=== PATIENT | male | born 1980 | race Caucasian/White ===

== ENCOUNTER 2019-12-08 07:20 | Outpatient (CLI) | payer OTHER, SELFPAY ==
--- NOTE | 2019-12-08 | XR_ITS ---
WS: [id number] LEFT FINGER (THE ENTIRE LEFT HAND IS IMAGED). TECHNIQUE: PA, oblique and lateral. HISTORY: FINGER PAIN LEFT COMPARISON: None available. Which injured finger is not documented. A lateral projection of the fifth finger is submitted. Theref ore I suspect the injury is to the fifth finger. The entire hand has been imaged. Tiny avulsion fracture along the volar surface near the PIP joint of the fifth finger. Small avulsion fracture, 2 mm. Probably from the proximal phalangeal head. There is a moderate amount of soft tissu e edema adjacent to the fifth finger and metacarpal. XR/XR finger LT min 2V [id number] IMPRESSION: Small avulsion fracture near the volar PIP joint of the fifth finger.
== END 2019-12-08 07:21 | disposition home or self-care (01) ==
LOC: RADOUTREAD 13:44
PROVIDERS: Family Provider Family Medicine; Visit Provider Family Medicine
DX: S62.617A Displaced fracture of proximal phalanx of left little finger, initial encounter for closed fracture (principal); M79.645 Pain in left finger(s); X58.XXXA Exposure to other specified factors, initial encounter; Y93.67 Activity, basketball

== ENCOUNTER → 2019-12-30 12:02 | Outpatient (BNVA) | payer OTHER, SELFPAY | PROVIDERS: Family Provider Family Medicine; PCP Orthopaedic Surgery; Visit Provider Orthopaedic Surgery | DX: S62.617A Displaced fracture of proximal phalanx of left little finger, initial encounter for closed fracture (principal); X58.XXXA Exposure to other specified factors, initial encounter; Y93.67 Activity, basketball | CPT/HCPCS: 73140 ==

== ENCOUNTER → 2020-01-27 12:17 | Outpatient (BNVA) | payer OTHER, SELFPAY | PROVIDERS: Family Provider Family Medicine; PCP Orthopaedic Surgery; Visit Provider Orthopaedic Surgery | DX: S63.287A Dislocation of proximal interphalangeal joint of left little finger, initial encounter (principal); X58.XXXA Exposure to other specified factors, initial encounter | CPT/HCPCS: 73140 ==

== ENCOUNTER 2020-09-06 20:43 | Emergency (ER) | payer OTHER, SELFPAY ==
[2020-09-06 20:49] VITALS: BP 136/82; PULSE 72; RESP 18; TEMP 36.5; O2SAT 97; BMI 31.1
--- NOTE | 2020-09-06 21:03 | W.ED.BACK ---
HPI - Back Pain/Injury General: Chief Complaint: Back Pain/Injury Stated Complaint: back pain Time Seen by Provider: 09/06/20 21:02 History of Present Illness: HPI Narrative: Patient is a 40-year-old male comes to the ED with right lumbar back pain with pain radiating down right leg. Patient symptoms started Saturday. He says he was out fishing at [facility] for 3 straight days before back pain started. He went in to [facility] on Saturday and was diagnosed with sciatica and given a steroid shot and muscle relaxer and diclofenac. pain is rated rated a 6 out of 10. Patient took 1 tab of hydrocodone 10 mg that he had at home and it did not not provide any relief. Denies any bladder or bowel incontinence, loss of sensation or weakness to lower extremities or pelvic anesthesia. Patient has a scheduled appointment to see primary care doctor this . Associated symptoms: Deny abdominal pain, chills, dysuria, fatigue, fever(s), hematuria, nausea or vomiting Review of Systems Const: Denies: fever(s), chills or fatigue Eyes: Denies: change in vision or eye discomfort ENMT: Denies: throat pain, odynophagia, nasal discharge or nasal congestion Card: Denies: chest pain, palpitations, edema, swelling of feet/ankles, dyspnea on exertion or orthopnea Resp: Denies: dyspnea, productive cough or non-productive cough GI: Denies: abdominal pain, nausea, vomiting, diarrhea, constipation or hematochezia : Denies: flank pain, difficulty urinating, dysuria or hematuria Musc: Reports: back pain (Lower back pain with pain radiating down right leg.); Denies: neck pain or extremity swelling Skin/Breast: Denies: rash or new lesions Neuro: Denies: headache(s), numbness in extremities or weakness in extremities PFS ED PFSH: Medical History Closed fracture dislocation of proximal interphalangeal (PIP) joint of finger Family History Denies family history of Diabetes CAD (coronary artery disease) Clotting disorder Dementia Hyperlipidemia Psychiatric illness Chronic kidney disease (CKD) Suicide Anesthesia complication Bleeding disorder Family history of premature coronary artery disease Lung disease Cancer Hypertension Stroke Social History Smoking and tobacco status: current some day smoker Alcohol intake: current Alcohol intake frequency: holidays/special occasions only Physical Exam Const: COMMON NORMALS: patient oriented x3 HENMT: COMMON NORMALS: normocephalic HEAD & SCALP: normocephalic MOUTH: Normal oral and palatal mucosa present THROAT: posterior oropharynx normal and uvula midline Neck/C-Spine: COMMON NORMALS: supple GENERAL: Yes normal visual inspection Resp: COMMON NORMALS: normal respiratory effort, No retractions, No use of accessory muscles and clear to auscultation bilaterally AUSCULTATION: clear to auscultation bilaterally Cardio: COMMON NORMALS: regular rate, regular rhythm, S1 normal heart sound present, S2 normal heart sound present, No gallops present (Cardio), No clicks present (Cardio), No murmurs present (Cardio) and Peripheral pulses 2+ throughout RATE: regular rate RHYTHM: regular rhythm HEART SOUNDS: S1 normal heart sound present and S2 normal heart sound present PERIPHERAL PULSES: Peripheral pulses 2+ throughout GI: COMMON NORMALS: Normal to inspection, nondistended, normoactive bowel sounds present, Soft to palpation, non-tender and no masses PALPATION: Yes Soft to palpation : COMMON NORMALS: Yes no CVA tenderness BLADDER/KIDNEY EXAM: Yes no CVA tenderness Back/Pelvis: COMMON NORMALS: no CVA tenderness LUMBAR SPINE/LOWER BACK: Yes paraspinal muscle tenderness (S1 radiculopathy) and Yes straight leg raise positive right (S1 radiculopathy) Extremity: COMMON NORMALS: normal to inspection and no pedal edema NARRATIVE EXTREMITY EXAM: Neurovascular intact in both right and left lower extremities. Pedal pulse 2+ Neuro: COMMON NORMALS: patient oriented x3 and moves all extremities Skin: COMMON NORMALS: no rashes or lesions noted GENERAL SKIN EXAM: no rashes or lesions noted and dry skin Course Vital Signs: Vital signs: Vital Signs Temperature 97.7 F 09/06/20 20:49 Pulse Rate 77 09/06/20 22:50 Respiratory Rate 18 09/06/20 22:50 Blood Pressure 108/77 09/06/20 22:50 Pulse Oximetry 100 09/06/20 22:50 MDM - Back Pain/Injury MDM Narrative: Medical decision making narrative: Patient is a 40-year-old male comes to the ED with lumbar radiculopathy. Symptoms started on Saturday after patient spent 3 days over the weekend fishing. Pain is radiating down right leg. Denies any bladder or bowel incontinence, pelvic anesthesia lower extremity weakness. Lower back pain with tenderness upon palpation of the S1 and pain radiating down right leg. Patient was given IM morphine, 125 mg Solu-Medrol while here in the ED. Patient diagnosed with lumbar radiculopathy and sent home with a prescription of Medrol Dosepak. Patient has previously scheduled appointment with PCP on . Return to ED precautions given. Patient understood and agreed with plan. Discharge Plan Discharge Patient Disposition: Home Clinical Impression: Lumbar radiculopathy Condition: Stable Prescriptions: New Medrol (Frantz) 4 mg tablets,dose pack See Rx Instructions .ROUTE .COMPLEX Qty: 21 RF: 0 No Action No Known Home Medications RF: 0 Discharge Orders: Discharge Order (Routine); Ordered 09/06/20 Ordered By: Jak Cox Referrals: Vikram Garcia DO [Primary Care Provider] - Vikram Lewis MD [Family Provider] - Discharge Diet: Regular Discharge Activity: Increase activity as tolerated Patient Instructions: Lumbar Radiculopathy (ED) Activity Restrictions/Additional Instructions: Follow-up with medical provider as scheduled on . Take medications as prescribed. Stretch lower back out daily. Apply heat or cold pack to possibly help with symptoms. Return to the ER or your medical provider if condition worsens. Please read and understand discharge instructions. If any questions, please ask. Discharge Date/Time: 09/06/20 22:53 Coding Level of Care Code ED Hand Buffer for Jean Fwd Exam Comprehensive
[2020-09-06 21:53] VITALS: RESP 18
[2020-09-06] MEDS: morphine 4 mg/mL SDV 1 mL IM (21:53)
[2020-09-06 22:50] VITALS: BP 108/77; PULSE 77; RESP 18; O2SAT 100
== END 2020-09-06 22:53 | disposition home or self-care (01) ==
PROVIDERS: Emergency Provider Physician Assistant; Family Provider Family Medicine; PCP Orthopaedic Surgery
DX: M54.16 Radiculopathy, lumbar region (principal); F17.210 Nicotine dependence, cigarettes, uncomplicated
CPT/HCPCS: 12345; 96372; 99281; 99283; J2270; J2930

== ENCOUNTER 2020-09-13 14:15 | Outpatient (CLI) | payer OTHER, SELFPAY ==
--- NOTE | 2020-09-13 14:21 | MR_ITS ---
WS: [id number] MRI LUMBAR SPINE WITH CONTRAST TECHNIQUE: Sagittal T1, T2 and STIR imaging. Axial T1 and T2 imaging. Post gadolinium imaging was obt ained. CLINICAL INFORMATION: Progressive/ worsening symptoms COMPARISON: None. FINDINGS: Mild lumbar curve. No acute compression. No high-grade central canal stenosis. Degenerative endplate- type changes L5-S1 with mild disc bulging. No abnormal gadolinium enhancement. Normal cauda equina ne rve rootlets. L1-L2: Normal. L2-L3: Normal. L3-L4: No significant disc bulging. Mild facet arthropathy. Spinal canal and foramen are patent. L4-L5: Mild disc bulging with a tiny right subarticular protrusion. Slight impingement traversing rig ht L5 nerve root. Mild right and no significant left foraminal narrowing. Mild facet arthropathy. L5-S1: L5 is partially sacralized. Peripheral enhancing extruded disc material in the right foramen w ith impingement on the exiting right L5 nerve root. Moderate to severe right foraminal narrowing. Correlation for right L5 nerve root symptoms. Mild narrowing of the right subarticular recess. Left f oramen is patent. Visualized pelvic bony structures: Normal. Paravertebral soft tissues: Normal. MR/MR lumbar spine wo/w con [id number] IMPRESSION: 1. Soft tissue fills the right L5-S1 neural foramen likely due to extruded dis c material. This impinges the exiting L5 nerve root with moderate to severe rig ht foraminal narrowing. Correlation for right L5 nerve root symptoms. 2. Mild narrowing of the right L5-S1 subarticular recess with slight encroachm ent on the right S1 nerve root. 3. Tiny right subarticular protrusion L4-5 impinges the traversing right L5 ne rve root in the subarticular recess. Mild right L4-5 foraminal narrowing.
== END 2020-09-13 14:16 | disposition home or self-care (01) ==
PROVIDERS: PCP Orthopaedic Surgery; Visit Provider Orthopaedic Surgery
DX: M53.86 Other specified dorsopathies, lumbar region (principal); M54.16 Radiculopathy, lumbar region; M51.26 Other intervertebral disc displacement, lumbar region
CPT/HCPCS: 72158; A9579

== ENCOUNTER → 2020-09-16 08:28 | Outpatient (BNVA) | payer OTHER, SELFPAY | PROVIDERS: PCP Orthopaedic Surgery; Referring Provider Orthopaedic Surgery; Visit Provider Anesthesiology Pain Medicine | DX: M51.9 Unspecified thoracic, thoracolumbar and lumbosacral intervertebral disc disorder (principal); M54.9 Dorsalgia, unspecified; F17.220 Nicotine dependence, chewing tobacco, uncomplicated | CPT/HCPCS: 99204 ==

== ENCOUNTER → 2020-09-21 12:38 | Outpatient (BNVA) | payer OTHER, SELFPAY | PROVIDERS: PCP Family Medicine Adult Medicine; Visit Provider Anesthesiology Pain Medicine | DX: M54.16 Radiculopathy, lumbar region (principal); M54.9 Dorsalgia, unspecified; F17.220 Nicotine dependence, chewing tobacco, uncomplicated | CPT/HCPCS: 64483; 64484; J1040; J3490 ==

== ENCOUNTER → 2020-10-05 12:36 | Outpatient (BNVA) | payer OTHER, SELFPAY | PROVIDERS: PCP Family Medicine Adult Medicine; Visit Provider Anesthesiology Pain Medicine | DX: M54.16 Radiculopathy, lumbar region (principal); M54.9 Dorsalgia, unspecified; F17.220 Nicotine dependence, chewing tobacco, uncomplicated; Z79.891 Long term (current) use of opiate analgesic | CPT/HCPCS: 64483; 64484; J1040; J3490 ==

== ENCOUNTER → 2020-10-19 10:20 | Outpatient (BNVA) | payer OTHER, SELFPAY | PROVIDERS: PCP Family Medicine Adult Medicine; Visit Provider Anesthesiology Pain Medicine | DX: M54.41 Lumbago with sciatica, right side (principal); M54.9 Dorsalgia, unspecified; F17.220 Nicotine dependence, chewing tobacco, uncomplicated; Z79.891 Long term (current) use of opiate analgesic | CPT/HCPCS: 99212 ==

== ENCOUNTER → 2020-11-07 10:29 | Outpatient (BNVA) | payer OTHER, SELFPAY | PROVIDERS: PCP Family Medicine Adult Medicine; Visit Provider Orthopaedic Surgery | DX: Z01.812 Encounter for preprocedural laboratory examination (principal); Z20.828 Contact with and (suspected) exposure to other viral communicable diseases | CPT/HCPCS: 87635 ==

== ENCOUNTER 2020-12-02 13:40 | Inpatient (IN) | payer OTHER, SELFPAY ==
[2020-11-23 08:30] VITALS: BMI 29.8
--- NOTE | 2020-11-23 09:05 | SUR.PREOP ---
Patient here for preop. Dr. Lee's office notified no orders. Dr. Lee called and wanted to give verbal orders. He stated wanted his usual orders and Ancef 2 grams OCOR. and Shower prep with Hibiclens. He also stated he would put the orders in the Day of Surgery and no labs to be drawn today.
--- NOTE | 2020-11-23 09:41 | ANES.PREANE2 ---
Pre-Anesthetic Assessment Pre-Anesthetic Assessment: Height/Weight: Height 1.83 m Weight 99.79 kg Proposed Procedure: Operation Date: 11/28/20 09:55 Proposed Procedures p PLIF L5/S1 [id number] [id number] 14317 [id number] M51.9(Not Applicable) - Kade Reaves Rosa, DO Was Beta Morris taken within 24 hours: N/A Social: Social History: No alcohol and No tobacco Comment: Chews Exam: Pre-Anes Outpt Exam: alert, oriented x 3, clear to auscultation bilaterally and regular rate & rhythm Airway: Submandibular: WNL Cervical ROM: WNL MP: 2 Dentition: Full Pulmonary: Pulmonary: None reported CV/HEM: CV/HEM: None reported : : None reported Hepatic: Hepatic: None reported GI: GI: None reported Metabolic: Metabolic: None reported Musc/skel: Musc/skel: Lower Back Pain Comments: Chronic back pain Neuropsych: Neuropsych: None reported Anesthetic Plan: ASA status: 3 Anesthesia: General Risk of > 500 ml blood loss (7ml/kg in children): No PFSH Anesthesia PFSH: Medical History Closed fracture dislocation of proximal interphalangeal (PIP) joint of finger Obesity (BMI 30.0-34.9) Sciatica associated with disorder of lumbar spine Family History Denies family history of Diabetes CAD (coronary artery disease) Clotting disorder Dementia Hyperlipidemia Psychiatric illness Chronic kidney disease (CKD) Suicide Anesthesia complication Bleeding disorder Family history of premature coronary artery disease Lung disease Cancer Hypertension Stroke Social History (Updated 10/19/20 @ 08:11 by Rylee Caballero LPN) Smoking and tobacco status: current every day smoker smokeless tobacco Smokeless tobacco user: chewing tobacco Alcohol intake: current Alcohol intake frequency: holidays/special occasions only History of recent travel: No Data Anesthesia Cardiac Studies: No Data to Display
--- NOTE | 2020-12-01 12:15 | PC.SOCIAL ---
Called [employer] and spoke with Rep. FMLA Claim#[id number] and STD #[id number]. From our calculations March 10 is when the STD may end. This is not confirmed. Given HR number and per them it was initially Nov 25, 2020 end date per Terri for the FMLA and 11/28/2020 for STD with [employer] claims. However request can be entered to extend. Was asked to speak with Organizational Development Manager. We will ask for extension request. And once This nurse talks to case planner will need to fill out addiitional paperwork and ongoing notes to justify the extension. Will work with case planner once receive a return phone call. Per the first individiual I talked to at [facility] they have no control over his STD and job security once the timeframe lapses. Again Terri indicates if STD is extended will secure his benefits but will be up to [employer] if employment continues. Martin indicates he is trying to touch base with [employer] as well. Contacted Terri at the not able to get a number for the actual HR dept. Will await a return call from the Organizational Development Manager
[2020-12-02] VITALS (19 sets, daily range): BP systolic 99–150; BP diastolic 61–109; PULSE 72–102; RESP 14–20; TEMP 36.1–37; O2SAT 94–100
--- NOTE | 2020-12-02 | XR_ITS ---
WS: [id number] INTRAOPERATIVE TECHNIQUE: 2 Spot fluoroscopic images for intraoperative purposes. FLUOROSCOPY TIME: 92.9 seconds CLINICAL INFORMATION: OR PICS COMPARISON: None. FINDINGS: Pedicle screw fixation L5-S1 with interbody fusion. Laminectomy defects. Hardware appears in good pos ition. XR/XR lumbar spine 2-3V* [id number] IMPRESSION: Images obtained for intraoperative purposes.
--- NOTE | 2020-12-02 | SCC_ITS ---
Procedure Done: 1. L5/S1 Interbody fusion with posterolateral fusion 2. Instrumentation L5/S1 3. Cage at L5/S1 4. Laminectomy L5 5. L4/5 Laminectomy with partial facetectomy 6. use of autograft from same incision 7. allograft 8. Bone marrow aspirate from iliac crest through separate incision in fascia 92.9 seconds of fluoroscopic guidance, for a cumulative dose of 93.80 mGy, was provided to Dr. Lee by the radiology department. C-arm images of the lumbar spine were saved for the patient's permanent record. J[facility]. PET[facility] VA MEDICAL CENTERJanene
--- NOTE | 2020-12-02 10:16 | P.ANESUD_ITS ---
Pre-Anesthetic Update Pre-Anesthetic Assessment: Date of Surgery/Procedure: 12/02/20 Preop Suni gnosis: lumbar stenosis Proposed Procedure: Operation Date: 12/02/20 11:15 Proposed Procedures p PLIF L5/S1 w/Neuromonitor 19439 13361 30840 31016 53182 14187 M51.9(Not Applicable) - Kade Lee, DO Any changes to Pre-Anesthetic Assessment?: No Vitals: Pulse Rhythm 12/02/20 09:53 Pulse Strength 3+ Normal 12/02/20 09:53 Oxygen Delivery Me thod 12/02/20 09:53 Exam: Pre-Anes Outpt Exam: alert, oriented x 3, clear to auscultation bilaterally and regular rate & rhythm Cardiac Studies: No Data to Display
[2020-12-02] MEDS: sodium chloride 0.9% 1,000 ML 30 ML IV (10:22)
--- NOTE | 2020-12-02 11:32 | W.PM.OPSUD ---
Surgery/Procedure H&P Update DATE OF PROCEDURE: December 02, 2020 DATE H&P PERFORMED: 12/02/20 H&P UPDATE INFORMATION: I have reviewed H&P completed within last 30 days and I have examined patient prior to procedure PREOP DIAGNOSIS: lumbar stenosis PLANNED PROCEDURE: Operation Date: 12/02/20 11:15 Proposed Procedures p PLIF L5/S1 w/Neuromonitor [id number] 80615 27333 48252 46574 46568 M51.9(Not Applicable) - Kade Lee DO
--- NOTE | 2020-12-02 11:33 | PM.HP ---
Providers/Chief Complaint Primary Care Provider: Milton Bang MD Chief Complaint: PLIF L5/S1 History of Present Illness Martin Peacock is a 40 year old male follow up of his recent back injections, patient is here today with spouse. Onset: 09/03/2020 Duration: 5 weeks Characteristics: pain to right leg, lower back Severity: 04/03 Location: lower back Radiating symptoms: right lower extermetiy Aggravating factors: activity Alleviating factors: rest Neuro deficits: patient denies numbness, tingling, weakness, incontinence of bowel/bladder, saddle anesthesia. Prior tx: lumbar injections Associated symptoms: Denies abdominal pain, chills, fever(s), nausea or vomiting Review of Systems Narrative: General ROS: negative for weight changes, fever ENT ROS: negative for nasal congestion, drainage or bleeding, sore throat, dysphagia or ear pain Eyes: PERRL Hematological and Lymphatic ROS: negative for swollen glands or abnormal bleeding Endocrine ROS: negative for polyuria/polydpsia or new changes in weight Respiratory ROS: negative for cough, shortness of breath, or wheezing Cardiovascular ROS: negative for chest pain or dyspnea on exertion Gastrointestinal ROS: negative for reflux, abdominal pain, change in bowel habits, or black or bloody stools Musculoskeletal ROS: negative for back pain, neck pain, or joint pain or swelling except for current problem Neurological ROS: negative for TIA or stoke symptoms Skin: no rashes Medications/Allergies Home Medications Medication Instructions Recorded Confirmed Last Taken Type naproxen sodium 220 mg capsule 220 mg PO BID PRN 10/05/20 12/02/20 1 Day Ago History ~12/01/20 gabapentin 300 mg capsule 300 mg PO TID #90 cap 10/27/20 12/02/20 12/02/20 06:00 Rx Allergies Allergy/AdvReac Type Severity Reaction Status Date / Time No Known Allergies Allergy Verified 12/02/20 09:48 PFSH Acute PFSH: Medical History Closed fracture dislocation of proximal interphalangeal (PIP) joint of finger Obesity (BMI 30.0-34.9) Sciatica associated with disorder of lumbar spine Family History Denies family history of Diabetes CAD (coronary artery disease) Clotting disorder Dementia Hyperlipidemia Psychiatric illness Chronic kidney disease (CKD) Suicide Anesthesia complication Bleeding disorder Family history of premature coronary artery disease Lung disease Cancer Hypertension Stroke Social History (Updated 10/19/20 @ 08:11 by Rylee Caballero LPN) Smoking and tobacco status: current every day smoker smokeless tobacco Smokeless tobacco user: chewing tobacco Alcohol intake: current Alcohol intake frequency: holidays/special occasions only History of recent travel: No Physical Exam Narrative: EXAM NARRATIVE: CONSTITUTIONAL: The patient is a normal appearing [] in no apparent distress. GENERAL: Patient in no acute distress. CARDIAC: Regular rate and rhythm. CHEST: Normal inspiratory effort, normal respiratory rate. ABDOMEN: Soft and nontender. SKIN: Clear, warm and intact. NEURO?PSYCH: The patient is alert and oriented to person, place and time. Sensorv /SILT Motor StrengthShoulder abduction C5 5/5Wrist extension C6 5/5Elbow extension C7 5/5Hand Information Systems Coordinator C8 5/5Finger abduction T15/5 Radial/ Ulnar/ Median n intact LowerSensory (SILT)Motor StrengthHin flexion L2/3Ant/inner thigh 5/5Hip adduction L2/3 5/5Knee extension L4 Lat thigh, 5/5Toe dorsiflexion L5 5/5Ankle dorsiflexion L5/ J13Alhewpq flexion S1 5/5 DTRBleeps 2+Triceps 2+Brachioradialis 2+Patellar 2+Achilles 2+ MUSCULOSKELETAL: [] UPPEREXTREMITIES: The patient had full active ROM in fingers, wrist, elbow, and shoulder. The patient demonstrated ability to fully flex/extend/abduct/adduct fingers, make ok sign, cross 2nd/3rd digits, extend 1st digit fully.. Radial pulse 2+, CR<2 seconds. LOWER EXTREMITIES: Pt has full, active ROM of toes, ankle, knee, and hip. Dorsalis pedis/posterior tibialis pulses 2+, CR<2 seconds. SPINE: Skin warm, dry, intact. A&P Additional A&P Information Right L5/S1 Far lateral disk herniation L5/S1 PLIF Attestations Medical Necessity Statement*: surgery Coding Level of Care Code Acute Entry Level Accountant for Jean Saba
[2020-12-02] MEDS: heparin, porcine 1,000 unit/mL INJ 10 mL 10000 UNIT XX (13:22)
--- NOTE | 2020-12-02 13:24 | SUR.OPER ---
2184 updated of surgical status
--- NOTE | 2020-12-02 14:34 | SUR.OPER ---
1434 updated of surgical status.
--- NOTE | 2020-12-02 17:07 | P.PCN_ITS ---
PACU note PACU note: VSS, Good respiratory effort, report to RESPIRATORY TECHNICIAN Post-Anesthesia Exam: awake
--- NOTE | 2020-12-02 17:07 | SUR.PHASEI ---
PT TO PACU SLEEPY WITH ORAL AIRWAY IN PLACE , GOOD RESP NOTED VSS IV PATENT TO LT HAND, PT WITH BACK INCISIOND/I AND WILLA DRAIN COMPRESSED WITH SMALL AMT RED DRAINAGE. ABD BINDER PLACED ON PT IN PACU. NO DISTRESS NOTED.
--- NOTE | 2020-12-02 17:07 | PM.PACU ---
PACU note PACU note: VSS, Good respiratory effort, report to CLIENT BUSINESS MANAGER Post-Anesthesia Exam: awake
--- NOTE | 2020-12-02 17:13 | SUR.PHASEI ---
PT CARE ASSUMED BY NOLBERTO NUR RN.
--- NOTE | 2020-12-02 17:14 | P.OP_ITS ---
Operative Report Date of procedure: December 02, 2020 Pre-op Diagnosis: lumbar stenosis Far lateral L5/S1 Right sided disk herniation Post-op diagnosis: same Procedure Done: 1. L5/S1 Interbody fusion with posterolateral fusion 2. Instrumentation L5/S1 3. Cage at L5/S1 4. Laminectomy L5 5. L4/5 Laminectomy with partial facetectomy 6. use of autograft from same incision 7. allograft 8. Bone marrow aspirate from iliac crest through separate incision in fascia Procedure: 1. L5/S1 Interbody fusion with posterolateral fusion 2. Instrumentation L5/S1 3. Cage at L5/S1 4. Laminectomy L5 5. L4/5 Laminectomy with partial facetectomy 6. use of autograft from same incision 7. allograft 8. Bone marrow aspirate from iliac crest through separate incision in fascia Patient was brought to the operative suite placed in the prone position after undergoing anesthesia. All areas impingement well-padded. Patient had neuro monitoring used throughout the entire case. There were no issues pre or postop. Patient was prepped and draped in normal sterile fashion. Skin incision made over the L5-S1 level. Subperiosteal dissection was made from L5 down to S1 out to the transverse processes. Once the exposure was completed retractors were placed. And then attention was brought to pacing the pedicle screws. This was done by placing the drill over the pedicle. And then using the gearshift or and then using the pedicle probe and then using the tap and then screws were placed. Size 50 screws were placed at L5 in size 45 were placed at S1 these were 6 5 screws. Once the screws were placed and attention was brought to placing the bone marrow aspirate device on the left crest this was done by placing incision in the fascia over the left iliac crest the device was malleted into the iliac crest aspirated and then a blunt hybrid tester was placed and it was malleted further and then aspirated every 1 cm was aspirated out to the 20 cc of bone marrow aspirate were used and then mixed with the allograft and autograft that was taken. Microscope was then brought in and laminectomy was performed at L5 on the right side. This was taken down from the L5 pedicle down to S1 patient had previous surgery over the L5-S1 level and there was significant Guardado scar tissue. Is debrided off the lateral aspect of the dura. The facet was completely taken out with the superior and inferior to get a process. This was in order to facilitate decompressing the L5 nerve root as it and third and left the right L5-S1 foramen. The L5 nerve root was directly visualized as it crossed over the disc laterally. The nerve was retracted and the far lateral disc was removed. Attention was then brought to placing the cage in the L5-S1 disc base. This was done by using a series of caty. Starting with 6 and going up to size 9. The disc base was debrided of disc with the caty and the pituitaries and endplate scrapers. Once the displaced was completely opened. Then 10 was brought to packing the cage with allograft which was osteoamp that was soaked in bone marrow aspirate. Once this was packed then attention was brought to placing the cage into the space prior to placing the cage however the the discase was packed with ostium sponges. And then the cage was placed. Once the cage was placed. AP lateral fluoroscopy ensured that the cages in the appropriate position. Attention was then brought to the L4-5 level. Patient on MRI had lateral recess stenosis. Which was discussed prior. I was looking great at the L5 nerve root as it came around the pedicle and decided to decompress the L5 nerve root at the L4-5 level. Appear to be tight. Laminectomy was performed of L4 and then the medial aspect of the facet joint of L4-5 was taken down with a high-speed bur and Kerrison rongeurs and curettes. Ligamentum flavum was taken down and the L5 nerve root was traced from where it came out of the thecal sac at the L4-5 level traced around the L5 pedicle and out where the foramen was previously. This L5 nerve root was completely freed up on the right side. Attention was then brought to decorticating the L5 and S1 lamina and the transverse processes on the left side. The this is all in the left side. The bone graft autograft allograft and sponges were all packed on the lamina and also in the lateral gutter on the left side. I do not place bone graft on the right side because I do not want to in case the nerve that we decompressed. Wounds were irrigated prior to placing the bone graft. And then deep drain was placed and the thoracolumbar fascia was closed with 0 Vicryl subcu tissue was closed with 2-0 Vicryl skin was closed with Monocryl suture and glue was placed on the wound. Sterile dressings were applied. Patient was transferred to the PACU in good position.
--- NOTE | 2020-12-02 17:26 | SUR.PHASEI ---
1719 oral airway removed at this time. spo2 99%. patient denies pain at this time. warm blanket given for comfort
--- NOTE | 2020-12-02 17:28 | SUR.PHASEI ---
1715 CARE OF PATIENT ASSUMED AT THIS TIME. PATIENT HAS ORAL AIRWAY IN PLACE. NO DISTRESS. WILL CONTINUE TO MONITOR.
[2020-12-02] MEDS: fentaNYL 50 mcg/mL INJ 2mL IVP (17:39)
--- NOTE | 2020-12-02 18:15 | SUR.PHASEI ---
1800 PATIENT TO MED SURG. PAIN IMPROVED. DRESSING TO BACK, CDI WITH HEMOVAC DRAIN. SPOUSE AWARE OF TRANSFER TO MED SURG. PATIENT RESTING ON BED WITH EYES CLOSED.
[2020-12-02] MEDS: HYDROcodone-acetaminophen 5-325 mg Tablet PO (19:36)
[2020-12-02] MEDS: gabapentin 300 mg Capsule PO (19:37)
[2020-12-02] MEDS: ketorolac 30 mg/mL INJ IVP (19:39)
[2020-12-03] MEDS: HYDROcodone-acetaminophen 5-325 mg Tablet PO ×3 (00:11→13:04)
[2020-12-03 01:00] VITALS: BP 110/77; PULSE 100; RESP 16; TEMP 36.8; O2SAT 97
[2020-12-03] MEDS: ketorolac 30 mg/mL INJ IVP ×2 (03:39→10:56)
[2020-12-03] MEDS: enoxaparin 40 mg/0.4 mL Syringe SUBCUT (05:53)
[2020-12-03 07:00] VITALS: BP 102/65; PULSE 92; RESP 18; TEMP 36.8; O2SAT 98
[2020-12-03] MEDS: docusate sodium 100 mg Capsule PO (08:35)
[2020-12-03] MEDS: gabapentin 300 mg Capsule PO (08:35)
--- NOTE | 2020-12-03 08:41 | P.DS_ITS ---
Discharge Providers Date of Admission: 12/02/20 13:40 Date of Discharge: December 03, 2020 Attending Provider at Admission: Kade Lee DO Attending Provider at Discharge: Kade Lee DO Primary Care Provider: Milton Bang MD Diagnoses at Discharge Discharge Diagnosis (1) Sciatica associated with disorder of lumbar spine: Status: Acute Reason for Visit Reason for Visit: PLIF L5/S1 Hospital Course Hospital Course uneventful. pt had surgery on 12/02/20. No calls through the night. Drain d/c on POD#1. PLan to D/C today 12/03/20 Physical Exam Narrative: EXAM NARRATIVE: radicular pain not present. Moving ankles. He has not been out of bed yet. Discharge Data Data Completed and Pending: Pending at discharge Category Date Time Status C-arm Fluoroscopy [id number] Routine Exams 12/02/20 09:55 Taken XR lumbar spine 2 -3V* [id number] Routine Exams 12/02/20 Taken Vitals: Last Vital Signs Temp 98.2 F 12/03/20 07:00 Pulse 92 12/03/20 07:00 Resp 18 12/03/20 07:00 BP 102/65 12/03/20 07:00 Pulse Ox 98 12/03/20 07:00 Discharge Plan Discharge Patient Disposition: Home Condition: Stable Prescriptions: New hydrocodone-acetaminophen 5-325 mg tablet 1 - 2 tab PO .Q4-6H Qty: 40 RF: 0 Continued naproxen sodium [Aleve] 220 mg capsule 220 mg PO BID PRN (Reason: Pain) RF: 0 gabapentin 300 mg capsule 300 mg PO TID Qty: 90 RF: 0 Discharge Orders: Discharge Order (Routine); Ordered 12/03/20 Ordered By: Kade Lee Other Ambulatory Orders: DME: Walker (Order) Location: None Selected Ordered By: Kade Lee Discharge Diet: Advance as tolerated Discharge Activity: Limit activity as instructed Activity Restrictions/Additional Instructions: Thank you for choosing [facility] for your care! The following is a list of instructions, from your provider, to follow upon your discharge to ensure you have the optimal recovery from your recent injury or surgery. Follow-up care is a hemphill part of your treatment and safety. Be sure to make and go to all appointments, and call your doctor if you are having problems. If you do not already have a follow-up appointment made, call Dr. Lee office in the next 1-3 days to make follow up appointment for 2 weeks at [phone]. It is also a good idea to know your test results and keep a list of the medicines you take. Medications will be prescribed for you at your provider's discretion. These medications are to be used as instructed; if they are taken more often that prescribed they will not be refilled early and in most cases will not be refilled at all. > When a refill is needed,you should contact our office 2-3 business days before your prescription runs out. Medications will NOT be refilled by construction accountant providers after hours! > Many pain medications contain Tylenol (Acetaminophen). Do not consume more than 4,000 mg of Tylenol per day in total with any combination ofmedications. > Pain medications can cause constipation. Please use an over the counter stool softener as directed, while taking pain medications. Consult your local pharmacist with questions or recommendations on stool softeners. If constipation persists, contact our office or your primary care provider. > While under our care,you are not to receive pain medications or other controlled substances from any other provider unless our office is notified and approves. Any attempts to do so will result in refusal to prescribe any further pain medications and possible dismissal from our practice. ? Your wound and/or dressing should remain clean and dry for 2 days after surgery. On postoperative day 2 (48 hours after your surgery) the dressing (if present) should be removed and it is okay to shower and get the incision wet. Pad dry afterwards. No further dressing should be required from that point on. Do not put any creams or ointments on the incision > It is normal for there to be a small amount of discharge (bloody or blood tinged) present from a surgical wound for the first 1-3days. > The wound should be examined twice a day for signs of infection. Mild redness or bruising is to be expected but indications that an infection maybe starting would include; An increase in redness, swelling, or discharge, a foul odor present around the incision, and/or a fever greater than 101 ?F ? Showering is permitted, however we ask that you do not take a bath, sit in a whirlpool / Jacuzzi, or go swimming for 1 month. For only the first 2 days after surgery, lt wilt be necessary for you to cover your wound/dressing with plastic and tape to keep it dry. ? Walking is essential for the healing process after surgery. We would like you to slowly advance your walking. This should be done on relatively flat clear ground (inside or out) or can be done on a treadmill. Remember this goal does not have to happen all at once, slowly increase your distance and duration. This can be broken into more more than one walk per day as tolerated. Patients who walk as directed after surgery rarely require Physical Therapy. In the unlikely event this issue arises your provider will direct hospital staff to make the appropriate arrangements. ? No lifting over 5 pounds {a gallon of milk) or bending/twisting until further notice. Each of these activities places an unnecessary amount of stress onto the body and can impede the delicate healing process. > Instead of bending at the waist, keep your back straight and bend at the knees. > Instead of twisting your torso, keep your back straight and turn your entire body with your feet. ? You may sleep in any position which makes you comfortable. Many patients find comfort sleeping in a reclining chair. It is not abnormal to have difficulty sleeping for the first several weeks following your surgery. We recommend trying Benadry! or Tylenol PM as directed to help with your sleeping difficulties. Both medications are over the counter and available without prescription. ? NO SMOKING!!! Smoking dramatically increases the probability of developing postoperative wound infections. ? Common complaints after lumbar and/or thoracic spine surgery include, but are not limited to: numbness and/or tingling in the legs, pain around the incision and surrounding tissues, muscle spasms, or stiffness of the middle to low back. Contact our office if these symptoms persist or if an acute change occurs. ? No driving for the first 3-5days, and not while taking narcotics until seen at your follow-up appointment and cleared. There are no restrictions for riding on short trips, however if you take a longer trip, arrangements should be made to make regular stops to get out of the vehicle and stretch . ? Swelling is an unfortunate event that will take place with any surgery and is the primary source of your postoperative discomfort. While walking and regular approved activities helps control inflammation, there are additional steps you can take to minimize swelling. > Place ice over the surgical site and surrounding tissue for twenty minutes, followed by applying a low/medium heat (heating pad) for an additional twenty minutes every 1-2 hours as needed for pain relief. > You may use of over the counter anti-inflammatory medications (Ibuprofen, Motrin, Aleve, Advil, etc) as directed on the package label. These types of medicines wm significantly reduce the amount of discomfort you experience after surgery from swelling. It should be noted that if you have and allergy to any of these medications, or a history of ulcers or kidney disease you should consult you primary care provider prior to starting these medications. Discharge Attestations Time Spent in Discharge Care*: less than 30 min Quality Metrics Clinical Quality Measures During this hospital stay, did patient experience: None Coding Level of Care Code Acute Career Education Teacher for Jean Saba Diagnoses Sciatica associated with disorder of lumbar spine M53.86
[2020-12-03 09:29] VITALS: PULSE 82; RESP 16; O2SAT 92
[2020-12-03 11:00] VITALS: BP 101/63; PULSE 88; RESP 17; TEMP 36.4; O2SAT 95
--- NOTE | 2020-12-03 11:01 | PC.NURSE ---
Patient ambulated in the hallway [address] around. Patient denies any dizziness reports 5/10 pain.
--- NOTE | 2020-12-03 12:30 | PC.NURSE ---
HemoVac removed at this time. Patient tolerated well.
--- NOTE | 2020-12-03 13:44 | PC.CHAP ---
Pastoral Care Encounter/Spiritual Assessment Type of Contact [] Declined chief load dispatcher visit [] Patient/Family/Request visit [] Outpatient visit [] Follow-up visit [] Physician referral [] Code/Alert [XX] Routine visit [] Staff referral [] Actively dying [] Patient sleeping [] Family support [] [] Out of room [] Palliative care [] [] Receiving care in room [] Pre-surgical visit [] Trauma [] Long length of stay [] ICU visit [] Other: Relational/Emotional Strength [XX] Patient feels connected with others/family/visitors/staff [] Distress [] Loneliness/isolation [] Abandonment Spirituality of Patient [XX] Person of Bonita [XX] Attends Sabianist of their Bonita [XX] Believes in Prayer [] Reads Bible or Congregation materials [] There are Spiritual issues to be addressed [facility] Interventions [] Prayer [XX] Active listening [XX] Non-anxious presence [] Spiritual/emotional support [] Crisis/trauma care [] Spiritual counseling [] Bereavement support [] Provided bereavement packet [] Provided Bible/devotional materials [] Provided toy/stuffed animal, coloring book to patient or family member [] Provided Communion [] Anointing/[place] [] Salvation [XX] Completed spiritual assessment [] Other: Impact on Illness or Injury [] Angry [] Fearful [] Anxious [] Often cries [] Exhaustion [] Unable to work [] Unable to attend restoration [] Unable to walk/stand [] Unable to read [] Unable to drive [] Unable to eat/drink [] Unable to sleep [] Unable to be with family [] Patient intubated [] Other: Summary: Pt has spinal surgery for herniated discs. He was 24-hours post-surgery and doing remarkably well in terms of his alertness and attitude. He was grateful for the care rec'd here, and he has a lot of support at home from family. Prayer was offered, but he assured me that he was, okay and to give it to the next person. He plans to be discharged later today. Time spent with patient: 10 mins
[2020-12-03 14:25] VITALS: BP 101/63; PULSE 88; RESP 17; TEMP 36.4; O2SAT 95
--- NOTE | 2020-12-03 14:26 | PC.NURSE ---
Patient and verbalized understanding of discharge instructions including how to take the Hydrocodone that was dispensed from [facility]. Patient requested to walk out with his walker that was brought to him. Patient ambulated to 1st floor without difficulty using his walker. Patient was able to get into his private car without difficulty. Patient is A&Ox3. Respirations even and non-labored on room air.
--- NOTE | 2020-12-05 12:53 | PC.RESP ---
Smoking Cessation information sent to patient.
== END 2020-12-03 14:20 | disposition home or self-care (01) | DRG 455 ==
LOC: MEDSURG 16:58
PROVIDERS: Admitting Provider Orthopaedic Surgery; PCP Family Medicine Adult Medicine; Visit Provider Orthopaedic Surgery
PROC: 0SG30AJ Fusion of Lumbosacral Joint with Interbody Fusion Device, Posterior Approach, Anterior Column, Open Approach (ICD-10-PCS; principal; 2020-12-02 11:15)
DX: M51.17 Intervertebral disc disorders with radiculopathy, lumbosacral region (principal); E66.9 Obesity, unspecified; Z68.30 Body mass index [BMI] 30.0-30.9, adult; F17.220 Nicotine dependence, chewing tobacco, uncomplicated
CPT/HCPCS: 12345; 72100; 76000; 90471; 90686; 96372; 97116; 97161; C1713; C9359; J0690; J1644; J1650; J1885; J2250; J2405; J2704; J3010; J3490; J7030

== ENCOUNTER → 2021-01-12 10:22 | Outpatient (BNVA) | payer OTHER, SELFPAY | PROVIDERS: PCP Family Medicine Adult Medicine; Visit Provider Orthopaedic Surgery | DX: Z48.89 Encounter for other specified surgical aftercare (principal) | CPT/HCPCS: 72100 ==

== ENCOUNTER 2021-01-23 06:00 | Outpatient (RCR) | payer OTHER, SELFPAY | END 2021-02-22 23:59 | disposition home or self-care (01) | LOC: SPT 06:00 | PROVIDERS: PCP Family Medicine Adult Medicine; Referring Provider Orthopaedic Surgery; Visit Provider Orthopaedic Surgery | DX: Z47.89 Encounter for other orthopedic aftercare (principal) | CPT/HCPCS: 97110; 97161 ==

== ENCOUNTER 2021-02-23 06:00 | Outpatient (RCR) | payer OTHER, SELFPAY | END 2021-03-24 23:59 | disposition home or self-care (01) | LOC: SPT 06:00 | PROVIDERS: PCP Family Medicine Adult Medicine; Referring Provider Orthopaedic Surgery; Visit Provider Orthopaedic Surgery | DX: Z47.89 Encounter for other orthopedic aftercare (principal) | CPT/HCPCS: 97110 ==

== ENCOUNTER → 2023-08-26 07:10 | Outpatient (BNVA) | payer OTHER, SELFPAY | PROVIDERS: Absent Provider Family Medicine Adult Medicine; PCP Family Medicine Adult Medicine; Visit Provider Family Medicine Adult Medicine | DX: E66.9 Obesity, unspecified (principal); Z00.00 Encounter for general adult medical examination without abnormal findings | CPT/HCPCS: 80053; 80061; 84443; 85025; G0103 ==

== ENCOUNTER → 2023-09-03 09:24 | Outpatient (BNVA) | payer OTHER, SELFPAY | PROVIDERS: PCP Family Medicine Adult Medicine; Referring Provider Family Medicine Adult Medicine; Visit Provider Physician Assistant | DX: M25.511 Pain in right shoulder (principal) | CPT/HCPCS: 73030 ==

== ENCOUNTER 2023-09-06 08:29 | Outpatient (CLI) | payer OTHER, SELFPAY ==
--- NOTE | 2023-09-06 08:45 | MR_ITS ---
WS: [id number] MRI RIGHT SHOULDER NONCONTRAST TECHNIQUE: Sagittal T2, coronal T1, T2 and proton density imaging. Axial gradient PDE imaging. CLINICAL INFORMATION: shoulder pain COMPARISON: None. FINDINGS: Moderate degenerative arthritis AC joint with mild fluid and edema. Mild downsloping acromion with im pingement distal supraspinatus. Subacromial spurring. Tendinopathy distal supraspinatus and infraspinatus. Normal teres minor. Subscapularis tendon appears intact. Biceps tendon appears intact within the bicipital groove. Glenoid labrum appears grossly int act. Intra-articular biceps tendon appears intact. Normal bone marrow signal involving the humerus an d glenoid. IMPRESSION: 1. Moderate degenerative arthritis AC joint with fluid and edema. Narrowing of the subacromial space with subacromial spurring and impingement distal supraspinatus. 2. Tendinopathy distal supraspinatus and infraspinatus. Rotator cuff is intact. 3. Normal biceps tendon in the bicipital groove. 4. Intra-articular biceps tendon appears intact. 5. No other suspicious findings.
== END 2023-09-06 08:30 | disposition home or self-care (01) ==
LOC: RAD 08:31
PROVIDERS: PCP Family Medicine Adult Medicine; Visit Provider Physician Assistant
DX: M19.011 Primary osteoarthritis, right shoulder (principal); M67.911 Unspecified disorder of synovium and tendon, right shoulder
CPT/HCPCS: 73221

== ENCOUNTER 2023-09-25 11:56 | Outpatient (CLI) | payer OTHER, SELFPAY ==
--- NOTE | 2023-09-25 12:00 | MR_ITS ---
WS: [id number] MRI CERVICAL SPINE NONCONTRAST HISTORY: cervical pain COMPARISON: None available. Technique: Multiplanar, multisequence noncontrast imaging of the cervical spine. Mild straightening of the normal cervical lordosis. Signal within the cervical cord is normal. Visualized posterior fossa is unremarkable. Craniocervical junction, C1 and C2 relationship, odontoid process and soft tissues are normal. C2-C3: Normal. C3-C4: Very small foraminal osteophytes. No stenosis. C4-C5: Small RIGHT foramen osteophyte. No significant stenosis. C5-C6: Very minimal disc bulging and small foraminal osteophytes. C6-C7: Mild annular disc bulge with a central shallow disc protrusion. No significant stenosis. C7-T1: Normal. Paraspinal soft tissue are normal. IMPRESSION: 1. No high-grade central or foraminal stenosis. 2. Small foraminal osteophytes as described above. No significant stenosis. 3. Very shallow central disc protrusion at C6-7.
== END 2023-09-25 11:57 | disposition home or self-care (01) ==
LOC: RAD 11:56
PROVIDERS: PCP Family Medicine Adult Medicine; Visit Provider Physician Assistant
DX: M50.123 Cervical disc disorder at C6-C7 level with radiculopathy (principal); M25.78 Osteophyte, vertebrae
CPT/HCPCS: 72141

== ENCOUNTER 2024-02-04 10:34 | Outpatient (RCR) | payer OTHER, SELFPAY | END 2024-02-23 23:59 | disposition home or self-care (01) | LOC: SPT 10:34 | PROVIDERS: PCP Orthopaedic Surgery; Visit Provider Orthopaedic Surgery | DX: M54.2 Cervicalgia (principal); G89.29 Other chronic pain | CPT/HCPCS: 97161 ==

== ENCOUNTER → 2024-04-28 16:18 | Outpatient (BNVA) | payer OTHER, SELFPAY | PROVIDERS: PCP Orthopaedic Surgery; Visit Provider Orthopaedic Surgery | DX: M54.12 Radiculopathy, cervical region (principal) | CPT/HCPCS: 80053; 81003; 85025 ==

== ENCOUNTER 2024-05-20 05:44 | Day surgery (SDC) | payer OTHER, SELFPAY ==
[2024-05-20] VITALS (15 sets, daily range): BP systolic 109–144; BP diastolic 62–100; PULSE 54–73; RESP 8–21; TEMP 36.1–36.3; O2SAT 93–100; BMI 31.4
[2024-05-20] MEDS: sodium chloride 0.9% 1,000 ML 30 ML IV (06:21)
--- NOTE | 2024-05-20 06:34 | P.HPUD_ITS ---
Surgery/Procedure H&P Update DATE OF PROCEDURE: May 20, 2024 DATE H&P PERFORMED: 05/06/24 H&P UPDATE INFORMATION: I have reviewed H&P completed within last 30 days, I have examined patient prior to procedure and No changes to prior documentation PREOP DIAGNOSIS: Cervical spondylosis with radiculopathy PLANNED PROCEDURE: Operation Date: 05/20/24 07:00 Proposed Procedures p Anterior Cervical Discectomy & Fusion ACDF w/ Instrumentation w/ Allograft C4- 5 53487, 84562, 49768, 49647, M47.22(Not Applicable) - Kade Lee DO
[2024-05-20] MEDS: fentaNYL 50 mcg/mL INJ 2mL IVP (06:40)
[2024-05-20] MEDS: ceFAZolin 2,000 MG in sodium chloride 0.9% (plus) 50 ML 100 MG IV (07:01)
--- NOTE | 2024-05-20 07:06 | P.ANESASSM_ITS ---
Pre-Anesthetic Assessment Height/Weight: Height 1.83 m Weight 105.233 kg Temp Pulse Resp BP Pulse Ox O2 Del Method 97 F L 72 18 133/100 95 Room Air 05/20/24 06:01 05/20/24 06:01 05/20/24 06:01 05/20/24 06:01 05/20/24 06:01 05/20/24 06:09 Preop Diagnosis: Cervical spondylosis with radiculopathy Operation Date: 05/20/24 07:00 Proposed Procedures p Anterior Cervical Discectomy & Fusion ACDF w/ Instrumentation w/ Allograft C4- 5 89221, 42452, 66991, 01738, M47.22(Not Applicable) - Kade Lee, Familial anesthetic complications: None Was Beta Morris taken within 24 hours: N/A Was Clonidine taken within 24 hours: N/A Last intake: Intake Last Liquid Date 05/19/24 Last Liquid Time 19:00 Last Solid Date 05/19/24 Last Solid Time 19:00 Social No alcohol chews Exam alert, oriented x 3, clear to auscultation bilaterally and regular rate & rhythm Airway Mallampati: Class II Dentition: full Anesthetic Plan ASA status: 2 Anesthesia: General Risk of > 500 ml blood loss (7ml/kg in children): No Medications/Allergies Home Medications Medication Instructions Recorded Confirmed Last Taken Type cetirizine 10 mg tablet (Zyrtec) 10 mg PO DAILY 08/08/21 05/19/24 05/19/24 History multivitamin 1 tab PO DAILY 07/20/22 05/19/24 05/19/24 History gabapentin 300 mg capsule 300 mg PO TID PRN Right sciatica 01/17/24 05/19/24 05/19/24 Rx pain #90 caps meloxicam 7.5 mg tablet 7.5 mg PO DAILY PRN shoulder pain 02/27/24 05/19/24 05/15/24 Rx 30 days #30 tabs fluticasone propionate 50 2 spray intranasal DAILY PRN 05/06/24 05/19/24 Unknown History mcg/actuation nasal allergies spray,suspension (Flonase Allergy Relief) Allergies Allergy/AdvReac Type Severity Reaction Status Date / Time No Known Allergies Allergy Verified 05/06/24 09:23 Current Medications Generic Name Dose Route Start Last Admin Trade Name Freq PRN Reason Stop Dose Admin Fentanyl 50 mcg 05/20/24 05:51 05/20/24 06:40 Fentanyl 50 Mcg/Ml Inj 2ml IVP 50 mcg Q10M PRN Administration Preop Pain Sodium Chloride 1,000 mls @ 30 mls/hr 05/20/24 06:00 05/20/24 06:21 Sodium Chloride 0.9% IV 05/21/24 05:59 30 mls/hr .Q24H KRISTIE Administration PFSH Anesthesia Medical History Diverticulosis Well adult health check Shoulder tendinitis Right shoulder pain Opioid contract exists Allergic rhinitis due to allergen Intervertebral disk syndrome Obesity (BMI 30.0-34.9) Sciatica associated with disorder of lumbar spine Closed fracture dislocation of proximal interphalangeal (PIP) joint of finger Surgical History History of back surgery L5 [facility] Family History Denies family history of Diabetes CAD (coronary artery disease) Clotting disorder Dementia Hyperlipidemia Psychiatric illness Chronic kidney disease (CKD) Suicide Anesthesia complication Bleeding disorder Family history of premature coronary artery disease Lung disease Cancer Hypertension Stroke Social History Smoking and tobacco/nicotine status: current every day tobacco/nicotine user smokeless tobacco Smokeless tobacco user: chewing tobacco Alcohol intake: current Alcohol intake frequency: holidays/special occasions only Substance/Drug Use: never Data Anesthesia Cardiac Studies: No Data to Display
[2024-05-20] MEDS: lidocaine-epi 1% 20 mL INJ INJECTION (07:53)
--- NOTE | 2024-05-20 08:57 | PM.OP ---
Operative Report Date of procedure: May 20, 2024 Pre-op diagnosis: Cervical spondylosis with radiculopathy Post-op diagnosis: same Procedure done: 1. Anterior diskectomy C4/5 2. Insertion of cage C4/5 3. Instrumentation with anterior plate from C4-C5 4. Use of allograft Surgeon: Kade Lee DO Estimated blood loss (mL): 10 Procedure: 1. Anterior diskectomy C4/5 2. Insertion of cage C4/5 3. Instrumentation with anterior plate from C4-C5 4. Use of allograft The patient was taken to the operating room, where he underwent general endotracheal anesthesia without complications. He was then positioned supine on the operating table, and all areas of impingement were well padded. The arms were carefully padded and tucked at his sides. A roll was placed between the shoulder blades.. An x-ray was done to determine the appropriate level for the skin incision. The entire neck was then sterilely prepped and draped in the usual fashion. Neuromonitoring was attached prior to prepping. A transverse skin incision was made and carried down to the platysma muscle. This was then split in line with its fibers. Blunt dissection was carried down medial to the carotid sheath and lateral to the trachea and esophagus until the anterior cervical spine was visualized. A needle was placed into a disc and an x-ray was done to determine its location. The longus colli muscles were then elevated bilaterally with the electrocautery unit. Self-retaining retractors were placed deep to the longus colli muscle. Attention was brought to the C4/5 level that was confirmed on x-ray. A caspar pin was placed into the C4 vertebrae and the C5 vertebrae. The disk space was then distracted. The microscope was then brought in. A radical anterior discectomies were performed at C4/5. This included complete removal of the anterior annulus, nucleus, and posterior annulus. The posterior longitudinal ligament was removed as were the posterior osteophytes. Foraminotomies were then accomplished bilaterally. This was done using a high speed suzy, kerrison rongeurs and curretes Once all of this was accomplished, the curved currette was used to check for any residual compression. The central canal was wide open as were the foramen. A high-speed bur was used to remove the cartilaginous endplates above and below the interspace. Bleeding cancellous bone was exposed. The disc space were measured and appropriate size cage were placed sterilely onto the field. Allograft graft was packed into the cages. The cage was then placed and there was good juxtaposition against the bleeding decorticated surfaces and good distraction of each interspace. Attention was brought to the next interspace. {copy description of discectomy to cage placement} The [place] pins were removed. Bone wax was used to prevent any bleeding from occurring at the pin sites. The appropriate size anterior cervical locking plate was chosen and bent into gentle lordosis. Two screws were then placed into each of the vertebral bodies at C4 and C5. There was excellent purchase. A final x-ray was done confirming good position of the hardware and Cages. The locking screws were then applied, also with excellent purchase. Following a final copious irrigation, there was good hemostasis and no dural leaks. The carotid pulse was strong. The wounds were then closed in layers using 2-0 Vicryl suture for the platysma muscle, 2-0 Vicryl suture for the subcutaneous tissue, and 4-0 monocryl suture in a subcuticular skin closure. Glue was placed followed by application of a sterile dressing. The drain was hooked to bulb suction. A soft collar was applied. The patient was then carefully returned to the supine position on his hospital bed where he was reversed and extubated and taken to the recovery room having tolerated the procedure well.
[2024-05-20] MEDS: HYDROcodone-acetaminophen 5-325 mg Tablet 1 TAB PO (10:29)
--- NOTE | 2024-05-20 11:00 | ANE.PACU2 ---
Inpatient post-anesthesia follow up: Airway intact: Yes Vital signs: Temperature 97.3 F Pulse Rate 70 Respiratory Rate 16 Blood Pressure 144/95 Pulse Oximetry 95 Oxygen Delivery Me thod Room Air Oxygen Flow Rate 8 Fraction of Inspir ed Oxygen Hydration adequate: Yes Nausea and vomiting: No Pain level: 1 Mental status: Baseline
--- NOTE | 2024-05-20 12:01 | XR_ITS ---
WS: [id number] Exam: XR cervical spine 3V* [id number] Date/Time of Exam: 05/20/2024 12:01 PM Reason For Exam: CESILIA PICS AP and lateral intraoperative images of the cervical spine are submitted. Images depict anterior fusion at C4-5 with disc spacer. Images were obtained for intraoperative visua lization purposes.
== END 2024-05-20 10:59 | disposition home or self-care (01) ==
PROVIDERS: PCP Family Medicine Adult Medicine; Visit Provider Orthopaedic Surgery
PROC: 0RB30ZZ Excision of Cervical Vertebral Disc, Open Approach (ICD-10-PCS; CPT 22551; principal; 2024-05-20 07:00)
DX: M54.12 Radiculopathy, cervical region (principal); E66.9 Obesity, unspecified; Z68.31 Body mass index [BMI] 31.0-31.9, adult; F17.200 Nicotine dependence, unspecified, uncomplicated
CPT/HCPCS: 20930; 22551; 22845; 22853; 72040; 76000; C1713; C1763; C9359; J0690; J1100; J1170; J2250; J2405; J2704; J2710; J3010; J3490; J7030

== ENCOUNTER → 2024-07-02 10:08 | Outpatient (BNVA) | payer OTHER, SELFPAY | PROVIDERS: PCP Family Medicine Adult Medicine; Visit Provider Orthopaedic Surgery | DX: Z98.1 Arthrodesis status (principal) | CPT/HCPCS: 72040 ==

== ENCOUNTER → 2024-08-11 10:20 | Outpatient (BNVA) | payer OTHER, SELFPAY | PROVIDERS: PCP Family Medicine Adult Medicine; Visit Provider Orthopaedic Surgery | DX: Z98.1 Arthrodesis status (principal) | CPT/HCPCS: 72040 ==

== ENCOUNTER → 2024-12-08 14:45 | Outpatient (BNVA) | payer OTHER, SELFPAY | PROVIDERS: PCP Family Medicine Adult Medicine; Visit Provider Orthopaedic Surgery | DX: Z98.1 Arthrodesis status (principal) | CPT/HCPCS: 72040 ==

== ENCOUNTER → 2025-06-15 08:07 | Outpatient (BNVA) | payer OTHER, SELFPAY | PROVIDERS: PCP Family Medicine Adult Medicine; Visit Provider Orthopaedic Surgery | DX: Z98.1 Arthrodesis status (principal) | CPT/HCPCS: 72040 ==